=== PATIENT | male | born 1960 ===

== ENCOUNTER 2023-02-09 09:29 | Outpatient (CLI) | payer OTHER ==
[~2023-02-09 09:29] MED LIST: AVAPRO300 MG; LIPITOR20 MG
== END 2023-02-09 09:39 | disposition home or self-care (01) ==
LOC: EDBD 09:29 → RX STUDY 09:29
PROVIDERS: ATTEND Otolaryngology Plastic Surgery within the Head & Neck
DX: R13.19 Other dysphagia (principal); R09.89 Other specified symptoms and signs involving the circulatory and respiratory systems